=== PATIENT | female | born 1960 | race Caucasian/White ===

== ENCOUNTER → 2017-07-28 | Outpatient (CLI) | payer OTHER | END | disposition home or self-care (01) | LOC: CFH 12:46 | PROVIDERS: ATTEND Family Medicine | DX: M26.69 Other specified disorders of temporomandibular joint (principal); H92.02 Otalgia, left ear; S09.93XA Unspecified injury of face, initial encounter; X58.XXXA Exposure to other specified factors, initial encounter; Y93.89 Activity, other specified; Y92.89 Other specified places as the place of occurrence of the external cause; Y99.8 Other external cause status | CPT/HCPCS: 70480; 70486 ==

== ENCOUNTER → 2017-09-14 | Outpatient (CLI) | payer OTHER ==
[~2017-09-14] MED LIST: GADOBUTROL 10 MMOL/10 ML PFS ONE
== END | disposition home or self-care (01) ==
LOC: CFH 07:37
PROVIDERS: ATTEND Otolaryngology
DX: H90.3 Sensorineural hearing loss, bilateral (principal); H93.13 Tinnitus, bilateral; H81.391 Other peripheral vertigo, right ear
CPT/HCPCS: 70553; A9585

== ENCOUNTER 2018-09-29 15:46 | Outpatient (CLI) | payer MEDICAID ==
[2018-09-29] MEDS ORDERED: OMNIPAQUE 350 MG/ML, 100ML BOTTLE ONE (17:51)
== END 2018-09-29 23:59 | disposition home or self-care (01) ==
LOC: RAD 15:46
PROVIDERS: ATTEND Family Medicine
DX: J18.1 Lobar pneumonia, unspecified organism (principal)
CPT/HCPCS: 74177; Q9967